=== PATIENT | male | born 1955 | race Caucasian/White ===

== ENCOUNTER 2018-04-30 23:57 | Emergency (ER) | payer OTHER ==
[~2018-04-30] VITALS: Ht 185.4 cm; Wt 102.1 kg
== END 2018-05-01 01:00 | disposition home or self-care (01) ==
LOC: ED 23:57
DX: S00.81XA Abrasion of other part of head, initial encounter (principal); S50.811A Abrasion of right forearm, initial encounter; S80.811A Abrasion, right lower leg, initial encounter; F17.200 Nicotine dependence, unspecified, uncomplicated; V09.9XXA Pedestrian injured in unspecified transport accident, initial encounter; Y99.0 Civilian activity done for income or pay
CPT/HCPCS: 99282

== ENCOUNTER 2018-05-03 15:11 | Emergency (ER) | payer OTHER ==
[~2018-05-03] VITALS: Ht 185.4 cm; Wt 102.1 kg
[2018-05-03] MEDS ORDERED: NORCO 10-325 T1 EACH PO (15:56)
== END 2018-05-03 16:31 | disposition home or self-care (01) ==
LOC: ED 15:11
PROC: 2W3DX1Z Immobilization of Left Lower Arm using Splint (ICD-10-PCS; principal; 2018-05-03)
DX: S52.502A Unspecified fracture of the lower end of left radius, initial encounter for closed fracture (principal); F17.200 Nicotine dependence, unspecified, uncomplicated; V09.20XA Pedestrian injured in traffic accident involving unspecified motor vehicles, initial encounter
CPT/HCPCS: 29125; 73110; 99283